=== PATIENT | male | born 1960 | race Caucasian/White ===

== ENCOUNTER 2018-01-10 20:24 | Inpatient (IN) | payer MEDICARE ==
[~2018-01-10 20:24] MED LIST: CARV12.5 PO; CLON0.2T PO; CLON1 PO; DIOV320T PO; GABA600T PO; HUMALOG SQ; HYDR-3799 PO; INSU1INJ5 SQ; ROPI1TAB72 PO; TRAM50TA PO
[2018-01-10] MEDS ORDERED: SODIUM CHLORIDE 0.9% FLUSH 10 ML FLUSH IV FLUSH PRN (21:30)
[2018-01-10] MEDS ORDERED: ACETAMINOPHEN 500 MG CPLT PO PRN (21:30)
[2018-01-10] MEDS ORDERED: FAMOTIDINE 20 MG TAB PO SCH (21:30)
[2018-01-10] MEDS ORDERED: NITROGLYCERIN 0.4 MG SL 25 TABS/BTL SL PRN (21:30)
[2018-01-10] MEDS ORDERED: hydrALAZINE HCL 20 MG/ML VIAL IV PUSH PRN (21:30)
[2018-01-10] MEDS ORDERED: GADODIAMIDE PF 287 MG/ML 5 ML VIAL (for RAD MRI) IVCONTRAST ONE (22:50)
[2018-01-10 23:00] VITALS: BP 185/115; PULSE 79; RESP 20; TEMP 98; O2SAT 98
[2018-01-10] MEDS: ENALAPRILAT 2.5 MG/2 ML VIAL IV PUSH PRN (23:20)
[2018-01-10] MEDS: HEPARIN SODIUM - SQ 10,000 UNITS/ML VIAL SQ SCH (23:21)
[2018-01-10] MEDS: FAMOTIDINE 20 MG TAB PO SCH (23:22)
--- NOTE | 2018-01-10 23:43 | HHI.HP ---
HPI Service [facility] Hospitalists Primary Care Physician Unknown Admission Diagnosis Hypertensive urgency and chest pain . Diagnoses: (1) Hypertension (2) Atypical chest pain (3) Diabetes mellitus Chief Complaint: headache with pulsation Travel History International Travel<30 Days: No Contact w/Intl Traveler <30 Da: No History of Present Illness Mr. Pleitez is a 57 y/o male patient with a history of hypertension, type II diabetes mellitus, coronary artery disease status post stent placement 15 years ago, RLS, neuropathy, and arthritis who presents to the emergency room and [place] on 01/10/2018 complaining of uncontrolled blood pressure despite taking medications. The patient reported symptoms lasting for 3 days and accompanied by chest pain, neck pain, frontal headache, and blurred vision. The patient does not follow with a city route driver. The patient was admitted to [facility] for further evaluation/management of chest pain and hypertension under the hospitalist service. The patient is seen in his hospital room. He reports that he is compliant with his medications but developed blood sugars in the 400s on Thursday (he intermittently has difficulty regulating his blood sugars and sees an board writer). Then, he had a severe frontal headache today. He said he checked his blood pressure and it was 240/136. He decided to come into the emergency room because he was feeling the way he feels when his blood pressure is completely out of control. He states he also had some chest tightness radiating to his left neck which was different than the chest pain he experienced when he had his stent placed 15 years ago. Review of Systems Except as stated in HPI: all other systems reviewed are Neg Past Family Social History Past Medical History Hypertension Diabetes mellitus Coronary artery disease status post stent placement Restless leg syndrome Neuropathy Arthritis Nerve damage right foot with mild foot drop s/p right knee surgery . Past Surgical History Cholecystectomy Bilateral knee surgeries x 8 Right shoulder surgery . Reported Medications Reported Meds & Active Scripts Active Reported Gabapentin 600 Mg Tab 600 Mg PO HS Tramadol (Tramadol HCl) 50 Mg Tab 50 Mg PO Q8H PRN Requip (Ropinirole) 1 Mg Tab 1 Mg PO HS Levemir Flextouch Pen Inj (Insulin Detemir) 300 unit/3 ML Pen 60-80 Units SQ BID Humalog Inj (Insulin Human Lispro) 1,000 Unit/10 Ml Vial 50 Units SQ BID Klonopin (Clonazepam) 1 Mg Tab 1 Mg PO BID Hydralazine HCl 25 Mg Tablet 25 Mg PO BID Coreg (Carvedilol) 12.5 Mg Tab 12.5 Mg PO BID Clonidine (Clonidine HCl) 0.2 Mg Tab 0.2 Mg PO BID Diovan (Valsartan) 320 Mg Tab 320 Mg PO DAILY . Allergies: Coded Allergies: rofecoxib (Verified Allergy, Severe, ABNORM LABS, 01/10/18) Family History Father with Alzheimer's disease Brothers with diabetes mellitus and hypertension Mother with hypertension . Social History Tobacco: Has never smoked Alcohol: Rare social alcohol use Illicit Drugs: Denies ever using illicit drugs . Physical Exam Physical Exam CONSTITUTIONAL: This is an overweight, well-developed patient, in no apparent distress. INTEGUMENTARY: No rashes, ecchymoses or lesions. Cool and dry. HEAD: Atraumatic. Normocephalic. EYES: No scleral icterus. No injection or drainage. ENT: Nose without bleeding, purulent drainage. NECK: Trachea midline. No JVD or lymphadenopathy. CARDIOVASCULAR: Regular rate and rhythm without murmurs, gallops, or rubs. RESPIRATORY: Clear to auscultation. Breath sounds equal bilaterally. No wheezes , rales, or rhonchi. GASTROINTESTINAL: Abdomen soft, non-tender, nondistended. No guarding. MUSCULOSKELETAL: Extremities without clubbing, cyanosis, or edema. No calf tenderness. NEUROLOGICAL: Awake and alert. Motor and sensory grossly within normal limits. Normal speech. PSYCHIATRIC: Appears somewhat anxious at the time of my visit . Laboratory Laboratory Tests Test 01/10/18 18:55 White Blood Count 8.2 TH/MM3 Red Blood Count 4.77 MIL/MM3 Hemoglobin 14.3 GM/DL Hematocrit 42.0 % Mean Corpuscular Volume 88.1 FL Mean Corpuscular Hemoglobin 30.0 PG Mean Corpuscular Hemoglobin Concent 34.0 % Red Cell Distribution Width 12.4 % Platelet Count 216 TH/MM3 Mean Platelet Volume 10.3 FL Immature Granulocyte % (Auto) 0.4 % Neutrophils (%) (Auto) 54.6 % Lymphocytes (%) (Auto) 34.7 % Monocytes (%) (Auto) 7.6 % Eosinophils (%) (Auto) 2.2 % Basophils (%) (Auto) 0.5 % Immature Granulocyte # (Auto) 0.0 TH/MM3 Neutrophils # (Auto) 4.5 TH/MM3 Lymphocytes # (Auto) 2.8 TH/MM3 Monocytes # (Auto) 0.6 TH/MM3 Eosinophils # (Auto) 0.2 TH/MM3 Basophils # (Auto) 0.0 TH/MM3 CBC Comment DIFF FINAL Differential Comment Prothrombin Time 9.8 SEC Prothromb Time International Ratio 0.9 RATIO Activated Partial Thromboplast Time 21.9 SEC Blood Urea Nitrogen 25 MG/DL Creatinine 1.20 MG/DL Random Glucose 185 MG/DL Calcium Level 8.4 MG/DL Magnesium Level 2.0 MG/DL Sodium Level 143 MEQ/L Potassium Level 4.2 MEQ/L Chloride Level 107 MEQ/L Carbon Dioxide Level 30.0 MEQ/L Anion Gap 6 MEQ/L Estimat Glomerular Filtration Rate 62 ML/MIN Total Creatine Kinase 284 U/L Creatine Kinase MB 4.4 NG/ML Troponin I LESS THAN 0.02 NG/ML . Imaging Last Impressions Chest X-Ray 01/10/18 1851 Signed Impressions: Service Date/Time: Wednesday, January 10, 2018 19:45 - CONCLUSION: 1. No acute cardiopulmonary disease. Ezra Reyes MD Head CT 01/10/18 0000 Signed Impressions: Service Date/Time: Wednesday, January 10, 2018 19:32 - CONCLUSION: 1. No acute intracranial abnormality. Ezra Reyes MD . Caprini VTE Risk Assessment Caprini VTE Risk Assessment: Mod/High Risk (score >= 2) Caprini Risk Assessment Model Point Value = 1 Point Value = 2 Point Value = 3 Point Value = 5 Age 41-60 Minor surgery BMI > 25 kg/m2 Swollen legs Varicose veins or History of unexplained or recurrent spontaneous Oral contraceptives or hormone replacement Sepsis (< 1 month) Serious lung disease, including pneumonia (< 1 month) Abnormal pulmonary function Acute myocardial infarction Congestive heart failure (< 1 month) History of inflammatory bowel disease Medical patient at bed rest Age 61-74 Arthroscopic surgery Major open surgery (> 45 min) Laparoscopic surgery (> 45 min) Malignancy Confined to bed (> 72 hours) Immobilizing plaster cast Central venous access Age >= 75 History of VTE Family history of VTE Factor V Leiden Prothrombin [id number] Lupus anticoagulant Anticardiolipin antibodies Elevated serum homocysteine Heparin-induced thrombocytopenia Other congenital or acquired thrombophilia Stroke (< 1 month) Elective arthroplasty Hip, pelvis, or leg fracture Acute spinal cord injury (< 1 month) Prophylaxis Regimen Total Risk Factor Score Risk Level Prophylaxis Regimen 0-1 Low Early ambulation 2 Moderate Order ONE of the following: *Sequential Compression Device (SCD) *Heparin 5000 units SQ BID 3-4 Higher Order ONE of the following medications: *Heparin 5000 units SQ TID *Enoxaparin/Lovenox 40 mg SQ daily (WT < 150 kg, CrCl > 30 mL/min) *Enoxaparin/Lovenox 30 mg SQ daily (WT < 150 kg, CrCl > 10-29 mL/min) *Enoxaparin/Lovenox 30 mg SQ BID (WT < 150 kg, CrCl > 30 mL/min) AND/OR *Sequential Compression Device (SCD) 5 or more Highest Order ONE of the following medications: *Heparin 5000 units SQ TID (Preferred with Epidurals) *Enoxaparin/Lovenox 40 mg SQ daily (WT < 150 kg, CrCl > 30 mL/min) *Enoxaparin/Lovenox 30 mg SQ daily (WT < 150 kg, CrCl > 10-29 mL/min) *Enoxaparin/Lovenox 30 mg SQ BID (WT < 150 kg, CrCl > 30 mL/min) AND *Sequential Compression Device (SCD) Assessment and Plan Problem List: (1) Hypertension ICD Code: I10 - Essential (primary) hypertension (2) Atypical chest pain ICD Code: R07.89 - Other chest pain (3) Diabetes mellitus ICD Code: E11.9 - Type 2 diabetes mellitus without complications Assessment and Plan Mr. Pleitez is a 57 y/o male patient with a history of hypertension, type II diabetes mellitus, coronary artery disease status post stent placement 15 years ago, RLS, neuropathy, and arthritis who presents to the emergency room and [place] on 01/10/2018 complaining of uncontrolled blood pressure despite taking medications. The patient reported symptoms lasting for 3 days and accompanied by chest pain, neck pain, frontal headache, and blurred vision. The patient does not follow with a city route driver. The patient was admitted to [facility] for further evaluation/management of chest pain and hypertension under the hospitalist service. Hypertensive urgency -Blood pressure was 185/115 upon arrival -Resume home antihypertensive medications -As needed enalapril 2.5 mg IV every 6 hours as needed; clonidine 0.1 mg po PRN - when HR > 60 -monitor trends in bp and adjust treatment accordingly Atypical chest pain -We will perform serial EKGs and cardiac enzymes to rule out ACS -Continuous cardiac telemetry to monitor for arrhythmias -Nitroglycerin as needed for chest pain - discussed with nurse the need to wean the NTG drip (started in [place] for BP management) -As needed morphine/[place] as needed for pain Type 2 Diabetes Mellitus -resume home Levemir (takes 40 units qhs per patient - different than what is on med req. Takes Humalog 70/30- 50 units if blood glucose > 290 at bedtime in lieu of Levemir - I have told him we will not be doing that here at the hospital ) - Accu-Cheks before meals and at bedtime with low-dose NovoLog sliding scale coverage - Hypoglycemia protocol - Monitor trends and blood glucose readings and adjust treatments as indicated DVT prophylaxis -Heparin 5000 units subcu every 8 hours . Discussed Condition With Dr. Mccarty, patient, and RN . Shoshana Griffith January 10, 2018 23:43
[2018-01-10] MEDS: MORPHINE SULFATE 4 MG/ML INJ IV PUSH PRN (23:46)
[2018-01-11] VITALS (16 sets, daily range): BP systolic 110–166; BP diastolic 8–107; PULSE 58–85; RESP 18–20; TEMP 98.1–98.8; O2SAT 97–99
[2018-01-11] MEDS: ACETAMINOPHEN/HYDROcodone 325 MG/7.5 MG TAB PO PRN ×4 (01:18→21:13)
[2018-01-11] MEDS: clonazePAM 1 MG TAB PO SCH ×3 (01:53→21:10)
[2018-01-11] MEDS: hydrALAZINE HCL 25 MG TAB PO SCH ×3 (01:53→21:11)
[2018-01-11] MEDS ORDERED: GLUCAGON 1 MG/ML VIAL OTHER PRN (02:00)
[2018-01-11] MEDS ORDERED: DEXTROSE 50% IN WATER 50 ML VIAL(D50) IV PUSH PRN (02:00)
[2018-01-11] MEDS ORDERED: cloNIDine HCL 0.1 MG TAB PO PRN (02:00)
[2018-01-11 02:11] LABS: TROPONIN I LESS THAN 0.02 NG/ML (0.02-0.05)
[2018-01-11] MEDS: MORPHINE SULFATE 4 MG/ML INJ IV PUSH PRN ×4 (02:41→21:15)
[2018-01-11] MEDS ORDERED: MORPHINE SULFATE 4 MG/ML INJ IV PUSH ONE (02:45)
[2018-01-11] MEDS: HEPARIN SODIUM - SQ 10,000 UNITS/ML VIAL SQ SCH ×3 (05:18→21:14)
[2018-01-11] MEDS: INSULIN ASPART SUPPLEMENTAL SCALE SQ SCH ×4 (08:00→22:19)
[2018-01-11] MEDS: VALSARTAN 160 MG TAB PO SCH (08:00)
[2018-01-11] MEDS: FAMOTIDINE 20 MG TAB PO SCH ×2 (08:00→21:11)
[2018-01-11] MEDS: CARVEDILOL 12.5 MG TAB PO SCH ×2 (08:00→21:10)
[2018-01-11] MEDS: SODIUM CHLORIDE 0.9% FLUSH 10 ML FLUSH IV FLUSH SCH ×2 (08:01→21:08)
--- NOTE | 2018-01-11 08:01 | EKG ---
Date Performed: 01/11/2018 Time Performed: 01:29:46 PTAGE: 57 years EKG: Sinus rhythm Normal ECG NO PREVIOUS TRACING DOCTOR: Jan Gale Interpretating Date/Time 01/11/2018 07:59:22
[2018-01-11] MEDS ORDERED: cloNIDine HCL 0.2 MG TAB PO SCH (09:00)
[2018-01-11 13:24] LABS: AUTOMATED NEUTROPHIL # 4.6 TH/MM3 (1.8-7.7); BASOPHIL % 0.2 % (0.0-2.0); EOSINOPHIL # 0.2 TH/MM3 (0-0.4); EOSINOPHIL % 2.2 % (0.0-4.0); HEMATOCRIT 46.1 % (39.0-51.0); HEMOGLOBIN 15.3 GM/DL (13.0-17.0); LYMPH % 29.8 % (9.0-44.0); LYMPHOCYTE # 2.2 TH/MM3 (1.0-4.8); MEAN CELL VOLUME 88.5 FL (80.0-100.0); MEAN CORPUSCULAR HEMOGLOBIN 29.5 PG (27.0-34.0); MEAN CORPUSCULAR HGB CONC 33.3 % (32.0-36.0); MEAN PLATELET VOLUME 8.5 FL (7.0-11.0); MONO % 6.8 % (0.0-8.0); MONOCYTE # 0.5 TH/MM3 (0-0.9); PLATELET COUNT 196 TH/MM3 (150-450); RED BLOOD COUNT 5.21 MIL/MM3 (4.50-5.90); RED CELL DISTRIBUTION WIDTH 13.5 % (11.6-17.2); WHITE BLOOD COUNT 7.5 TH/MM3 (4.0-11.0)
[2018-01-11 13:53] LABS: BICARBONATE 24.5 MEQ/L (21.0-32.0); BLOOD UREA NITROGEN 20 MG/DL (7-18); CALCIUM 8.2 MG/DL (8.5-10.1); CHLORIDE 105 MEQ/L (98-107); CREATININE 1.16 MG/DL (0.60-1.30); GLOMERULAR FILTRATION RATE 65 ML/MIN (>89); GLUCOSE,RANDOM 286 MG/DL (74-106); SODIUM (NA) 138 MEQ/L (136-145)
[2018-01-11 13:57] LABS: TROPONIN I LESS THAN 0.02 NG/ML (0.02-0.05)
--- NOTE | 2018-01-11 17:20 | HHI.PR ---
Subjective Remarks Patient seen and examined earlier today Patient was concern about having his blood pressure within the normal range, he stated this usually causing him to be dizzy and lightheaded however he is not right now no headache blood pressure was 110/69 Objective Vitals Vital Signs Date Time Temp Pulse Resp B/P (MAP) Pulse Ox O2 Delivery O2 Flow Rate FiO2 01/11/18 16:22 18 01/11/18 15:45 73 01/11/18 15:45 98.4 63 20 123/84 (97) 97 01/11/18 12:23 98.4 66 18 110/69 (83) 98 01/11/18 09:29 18 01/11/18 08:14 70 01/11/18 08:14 97 Nasal Cannula 2.00 01/11/18 08:14 98.1 64 18 166/94 (118) 97 01/11/18 06:00 69 01/11/18 05:00 73 01/11/18 04:00 98.3 70 18 126/8 (47) 98 01/11/18 04:00 Nasal Cannula 2.00 01/11/18 04:00 70 01/11/18 03:00 72 01/11/18 02:00 74 01/11/18 01:00 76 01/11/18 00:00 85 01/11/18 00:00 98.1 85 20 146/82 (103) 99 01/10/18 23:00 98.0 79 20 185/115 (138) 98 I/O 01/10/18 01/10/18 01/10/18 01/11/18 01/11/18 01/11/18 06:59 14:59 22:59 06:59 14:59 22:59 Intake Total 480 ml Output Total 700 ml Balance -220 ml Intake Oral 480 ml Output Urine Total 700 ml # Bowel Movements 0 Result Diagram: 01/11/18 1300 01/11/18 1300 Objective Remarks GENERAL: This is a well-nourished, well-developed patient, in no apparent distress. CARDIOVASCULAR: RRR, no gallops, or rubs. RESPIRATORY: Fair air entry bilaterally. No W, R, or R GASTROINTESTINAL: Abdomen soft, non-tender, nondistended. Positive bowel sounds MUSCULOSKELETAL: Extremities without clubbing, cyanosis, or edema. Pedal pulses appreciated NEUROLOGICAL: Awake and alert. Moves all extremity. Normal speech.no focal neurological deficit A/P Problem List: (1) Hypertension ICD Code: I10 - Essential (primary) hypertension (2) Atypical chest pain ICD Code: R07.89 - Other chest pain (3) Diabetes mellitus ICD Code: E11.9 - Type 2 diabetes mellitus without complications Assessment and Plan Mr. Pleitez is a 57 y/o male patient with a history of hypertension, type II diabetes mellitus, coronary artery disease status post stent placement 15 years ago, RLS, neuropathy, and arthritis who presents to the emergency room and [place] on 01/10/2018 complaining of uncontrolled blood pressure despite taking medications. The patient reported symptoms lasting for 3 days and accompanied by chest pain, neck pain, frontal headache, and blurred vision. The patient does not follow with a ruby on rails engineer. The patient was admitted to [facility], [place], operated by [facility] for further evaluation/management of chest pain and hypertension under the hospitalist service. Hypertensive urgency -Blood pressure was 185/115 upon arrival -Resume home antihypertensive medications -As needed enalapril 2.5 mg IV every 6 hours as needed; clonidine 0.1 mg po PRN - when HR > 60 -monitor trends in bp and adjust treatment accordingly 01/11: Blood pressure dropped to 110/69 I will reduce clonidine to 0.1 twice daily and make it with holding parameter for less than 130/80 Atypical chest pain>> improved mostly due to hypertensive urgency>> consider cardiology consultation -Reviewed l EKGs and cardiac enzymes to rule out ACS -Continuous cardiac telemetry to monitor for arrhythmias -Nitroglycerin as needed for chest pain - discussed with nurse the need to wean the NTG drip (started in [place] for BP management) -As needed morphine/[place] as needed for pain Type 2 Diabetes Mellitus -resume home Levemir (takes 40 units qhs per patient - different than what is on med req. Takes Humalog 70/30- 50 units if blood glucose > 290 at bedtime in lieu of Levemir - I have told him we will not be doing that here at the hospital ) - Accu-Cheks before meals and at bedtime with low-dose NovoLog sliding scale coverage - Hypoglycemia protocol - Monitor trends and blood glucose readings and adjust treatments as indicated DVT prophylaxis -Heparin 5000 units subcu every 8 hours Pirya Bullard MD January 11, 2018 17:20
[2018-01-11] MEDS: GABAPENTIN 300 MG CAP PO SCH (21:09)
[2018-01-11] MEDS: cloNIDine HCL 0.2 MG TAB PO SCH (21:12)
[2018-01-11] MEDS: INSULIN DETEMIR 100 UNITS/ML VIAL SQ SCH (22:19)
[2018-01-12] VITALS (28 sets, daily range): BP systolic 129–172; BP diastolic 73–108; PULSE 52–89; RESP 16–20; TEMP 97.9–98.9; O2SAT 96–98
[2018-01-12] MEDS: ACETAMINOPHEN/HYDROcodone 325 MG/7.5 MG TAB PO PRN ×3 (05:37→21:55)
[2018-01-12] MEDS: HEPARIN SODIUM - SQ 10,000 UNITS/ML VIAL SQ SCH ×3 (05:37→21:50)
[2018-01-12] MEDS: INSULIN ASPART SUPPLEMENTAL SCALE SQ SCH ×4 (08:00→21:48)
[2018-01-12] MEDS: FAMOTIDINE 20 MG TAB PO SCH ×2 (08:18→21:47)
[2018-01-12] MEDS: hydrALAZINE HCL 25 MG TAB PO SCH ×2 (08:18→21:46)
[2018-01-12] MEDS: cloNIDine HCL 0.2 MG TAB PO SCH ×2 (08:19→21:46)
[2018-01-12] MEDS: clonazePAM 1 MG TAB PO SCH ×2 (08:19→21:44)
[2018-01-12] MEDS: MORPHINE SULFATE 4 MG/ML INJ IV PUSH PRN ×2 (08:19→14:52)
[2018-01-12] MEDS: SODIUM CHLORIDE 0.9% FLUSH 10 ML FLUSH IV FLUSH SCH ×2 (09:00→21:51)
[2018-01-12] MEDS: CARVEDILOL 12.5 MG TAB PO SCH ×2 (09:00→21:45)
[2018-01-12] MEDS: VALSARTAN 160 MG TAB PO SCH (09:00)
--- NOTE | 2018-01-12 15:03 | HHI.PR ---
Subjective Remarks no complains of chest pain or shortness of breath telemetry- sinus- HR in the 50s complains of headahces associated with neck pain with flushing lights states good hypoglycemic awareness Objective Vitals Vital Signs Date Time Temp Pulse Resp B/P (MAP) Pulse Ox O2 Delivery O2 Flow Rate FiO2 01/12/18 13:00 72 01/12/18 12:00 58 01/12/18 11:30 98.6 63 16 144/78 (100) 98 01/12/18 11:00 56 01/12/18 10:00 66 01/12/18 09:00 74 01/12/18 08:00 52 01/12/18 07:50 98.7 56 18 172/108 (129) 98 01/12/18 07:36 98 01/12/18 07:00 63 01/12/18 06:10 64 01/12/18 05:00 58 01/12/18 04:00 66 01/12/18 03:57 97.9 64 18 133/85 (101) 96 01/12/18 03:00 63 01/12/18 02:00 62 01/12/18 01:00 58 01/12/18 00:14 98.7 66 16 129/73 (91) 98 01/12/18 00:00 62 01/11/18 23:00 76 01/11/18 22:21 18 01/11/18 22:00 60 01/11/18 21:30 20 01/11/18 21:00 62 01/11/18 20:53 98.8 62 18 149/107 (121) 98 01/11/18 20:53 97 Room Air 01/11/18 20:00 58 01/11/18 19:00 70 01/11/18 15:45 73 01/11/18 15:45 98.4 63 20 123/84 (97) 97 I/O 01/11/18 01/11/18 01/11/18 01/12/18 01/12/18 01/12/18 07:00 15:00 23:00 07:00 15:00 23:00 Intake Total 480 ml 960 ml 480 ml Output Total 700 ml 1400 ml 925 ml Balance -220 ml -440 ml -445 ml Intake Oral 480 ml 960 ml 480 ml Output Urine Total 700 ml 1400 ml 925 ml # Bowel Movements 0 1 1 Result Diagram: 01/11/18 1300 01/11/18 1300 Objective Remarks awake and alert, no acute distress, good EOM full range of motion CN intact anicteric neck supple lungs- clear regular rhythm abdomen soft, nontender motor 5/5 gait up and ambulating- stady. grossly no sensory deficits A/P Problem List: (1) Hypertension ICD Code: I10 - Essential (primary) hypertension (2) Atypical chest pain ICD Code: R07.89 - Other chest pain (3) Diabetes mellitus ICD Code: E11.9 - Type 2 diabetes mellitus without complications Assessment and Plan Mr. Pleitez is a 57 y/o male patient with a history of hypertension, type II diabetes mellitus, coronary artery disease status post stent placement 15 years ago, RLS, neuropathy, and arthritis who presents to the emergency room and [place] on 01/10/2018 complaining of uncontrolled blood pressure despite taking medications. The patient reported symptoms lasting for 3 days and accompanied by chest pain, neck pain, frontal headache, and blurred vision. The patient does not follow with a hip hop dancer. The patient was admitted to [facility] for further evaluation/management of chest pain and hypertension under the hospitalist service. Hypertensive urgency- contiue meds and adjust -Blood pressure was 185/115 upon arrival -Resume home antihypertensive medications -As needed enalapril 2.5 mg IV every 6 hours as needed; -monitor trends in bp and adjust treatment accordingly on coreg 12.5 mg po bid - on clonidine 0.1 mg po bid continue on ARB Atypical chest pain>> improved mostly due to hypertensive urgency>>troponins negative,. no chest pain History of CAD -Reviewed l EKGs and cardiac enzymes to rule out ACS -Continuous cardiac telemetry to monitor for arrhythmias - request for myocardial perfusion study Type 2 Diabetes Mellitus -resume home Levemir (takes 40 units qhs per patient - different than what is on med req. - Takes Humalog 70/30- 50 units if blood glucose > 290 at bedtime in lieu of Levemir - I have told him we will not be doing that here at the hospital) - Accu-Cheks before meals and at bedtime with low-dose NovoLog sliding scale coverage - Hypoglycemia protocol - Monitor trends and blood glucose readings and adjust treatments as indicated - OP ff up with PCP - Dr. Singleton DVT prophylaxis -Heparin 5000 units subcu every 8 hours Headaches - neuro exam- negative - Margie prn Increase activity PT consult- right foot drop - chronic- cane or walker Denisse Parada MD January 12, 2018 15:03
--- NOTE | 2018-01-12 15:15 | HHI.FF ---
Face to Face Verification Diagnosis: (1) Diabetes mellitus (2) Hypertension Home Health Nursing Order: Nursing assessment with vital signs I have seen patient José Miguel Pleitez on 01/12/18. My clinical findings support the need for the requested home health care services because: Ltd mobility - disease progression Need for psychosocial assistance I certify that my clinical findings support that this patient is homebound because: Need for psychosocial assistance Denisse Parada MD January 12, 2018 15:15
[2018-01-12] MEDS: SODIUM CHLOR 0.9% 1000 ML INJ 1,000 ML IV SCH ×2 (15:45→16:45)
[2018-01-12] MEDS ORDERED: MORPHINE SULFATE 4 MG/ML INJ IV PUSH PRN (15:45)
--- NOTE | 2018-01-12 21:09 | RADRPT ---
EXAM DATE: 01/12/2018 8:54 PM EDT AGE/SEX: 57 years / Male INDICATIONS: Cephalgia. CLINICAL DATA: This is the patient's initial encounter. Patient reports that signs and symptoms have been present for 1 day and indicates a pain score of 6/10. MEDICAL/SURGICAL HISTORY: Hypertension. Diabetes mellitus type II. Total knee replacement, lef t. Total knee replacement, right. Cholecystectomy. Right shoulder replacement. COMPARISON: [facility], CT BRAIN W/O CONTRAST, 01/10/2018. . TECHNIQUE: Multiplanar, multisequence examination of the brain was performed without and with 17 ml O mniscan (gadodiamide) contrast as a single exam dose. FINDINGS: Cerebrum: The ventricles are normal for age. No evidence of midline shift, mass lesion, hemorrhage or acute infarction. No extraaxial fluid collections are seen. The pituitary gland and suprasellar cistern are normal in configuration. White Matter: No significant signal abnormalities are seen in the white matter. Posterior Fossa: The cerebellum and brainstem are intact. The 4th ventricle is midline. The cerebel lopontine angle is unremarkable. The cerebellar tonsils are normal in position. There are prominent degenerative changes in the atlantoaxial articulation and there is synovial thickening posterior to t he dens which does cause a curvature of the junction of the cervical cord and brainstem. There is CSF seen ventral to the cervical cord. No evidence of syrinx. Diffusion Imaging: No focal areas of restricted diffusion are seen. No evidence of acute infarction . Extracranial: The visualized portions of the orbits and paranasal sinuses are unremarkable. Post Contrast: No abnormal areas of parenchymal or dural enhancement. No evidence of blood-brain ba rrier breakdown. CONCLUSION: 1. Degenerative changes of the atlantoaxial articulation with associated synovial thickening which d oes cause some deviation of the junction of the medulla and cervical cord, but no evidence of cord co mpression. 2. No acute findings in the supra or infratentorial brain. Electronically signed by: Zach Monroe MD 01/12/2018 9:08 PM EDT
[2018-01-12] MEDS: GABAPENTIN 300 MG CAP PO SCH (21:45)
[2018-01-12] MEDS: INSULIN DETEMIR 100 UNITS/ML VIAL SQ SCH (21:48)
[2018-01-13] VITALS (28 sets, daily range): BP systolic 114–208; BP diastolic 71–111; PULSE 50–70; RESP 12–18; TEMP 97.8–98.4; O2SAT 94–97
[2018-01-13 03:28] LABS: ALBUMIN 3.5 GM/DL (3.4-5.0); ALKALINE PHOSPHATASE 74 U/L (45-117); ALT (GPT) 30 U/L (12-78); AST (GOT) 18 U/L (15-37); BICARBONATE 27.3 MEQ/L (21.0-32.0); BLOOD UREA NITROGEN 18 MG/DL (7-18); CALCIUM 8.1 MG/DL (8.5-10.1); CHLORIDE 105 MEQ/L (98-107); CHOLESTEROL 177 MG/DL (120-200); CHOLESTEROL/ HDL RATIO 6.02 RATIO; CREATININE 0.85 MG/DL (0.60-1.30); DIRECT BILIRUBIN ADULT LESS THAN 0.1 MG/DL (0.0-0.2); GLOMERULAR FILTRATION RATE 93 ML/MIN (>89); GLUCOSE,RANDOM 149 MG/DL (74-106); HDL CHOLESTEROL 29.4 MG/DL (40.0-60.0); LDL CHOLESTEROL 78 MG/DL (0-99); SODIUM (NA) 140 MEQ/L (136-145); TOTAL BILIRUBIN ADULT 0.1 MG/DL (0.2-1.0); TOTAL PROTEIN 7.5 GM/DL (6.4-8.2); TRIGLYCERIDES 350 MG/DL (42-150)
[2018-01-13] MEDS: HEPARIN SODIUM - SQ 10,000 UNITS/ML VIAL SQ SCH ×3 (05:08→20:58)
[2018-01-13] MEDS: INSULIN ASPART SUPPLEMENTAL SCALE SQ SCH ×4 (08:00→21:00)
[2018-01-13] MEDS: clonazePAM 1 MG TAB PO SCH ×2 (08:48→20:57)
[2018-01-13] MEDS: cloNIDine HCL 0.2 MG TAB PO SCH ×2 (08:49→20:56)
[2018-01-13] MEDS: CARVEDILOL 12.5 MG TAB PO SCH ×2 (08:49→20:57)
[2018-01-13] MEDS: hydrALAZINE HCL 25 MG TAB PO SCH ×2 (08:49→17:17)
[2018-01-13] MEDS: FAMOTIDINE 20 MG TAB PO SCH ×2 (08:49→20:57)
[2018-01-13] MEDS: SODIUM CHLORIDE 0.9% FLUSH 10 ML FLUSH IV FLUSH SCH ×2 (09:00→20:58)
[2018-01-13] MEDS: VALSARTAN 160 MG TAB PO SCH (09:00)
[2018-01-13] MEDS: ACETAMINOPHEN/HYDROcodone 325 MG/7.5 MG TAB PO PRN ×2 (10:06→18:41)
--- NOTE | 2018-01-13 11:08 | HHI.PR ---
Subjective Remarks headache- relieves with Lortab- no nausea or vomitng, no neck pain no complains of chest pain or shortness ofb reath Objective Vitals Vital Signs Date Time Temp Pulse Resp B/P (MAP) Pulse Ox O2 Delivery O2 Flow Rate FiO2 01/13/18 07:17 98.0 55 12 155/103 (120) 96 01/13/18 06:00 50 01/13/18 05:00 54 01/13/18 04:03 97.8 57 18 114/73 (87) 96 01/13/18 04:00 60 01/13/18 03:00 56 01/13/18 02:00 62 01/13/18 01:00 58 01/13/18 00:00 98.1 62 18 124/71 (88) 96 01/13/18 00:00 70 01/12/18 23:00 70 01/12/18 22:55 18 01/12/18 22:00 70 01/12/18 22:00 66 01/12/18 21:00 64 01/12/18 20:00 98.3 62 20 157/90 (112) 97 01/12/18 20:00 97 Room Air 01/12/18 20:00 62 01/12/18 19:00 70 01/12/18 18:00 72 01/12/18 17:00 66 01/12/18 16:00 58 01/12/18 15:00 64 01/12/18 15:00 98.9 73 18 144/96 (112) 98 01/12/18 14:00 66 01/12/18 13:00 72 01/12/18 12:00 58 01/12/18 11:30 98.6 63 16 144/78 (100) 98 I/O 01/12/18 01/12/18 01/12/18 01/13/18 01/13/18 01/13/18 07:00 15:00 23:00 07:00 15:00 23:00 Intake Total 480 ml 1000 ml 480 ml Output Total 925 ml 1700 ml 350 ml Balance -445 ml -700 ml 130 ml Intake Oral 480 ml 1000 ml 480 ml Output Urine Total 925 ml 1700 ml 350 ml # Bowel Movements 1 Result Diagram: 01/11/18 1300 01/13/18 0205 Imaging Last Impressions Brain MRI 01/12/18 0000 Signed Impressions: CONCLUSION: Objective Remarks awake and alert, no acute distress, good EOM full range of motion CN intact anicteric neck supple lungs- clear regular rhythm abdomen soft, nontender motor 5/5 gait up and ambulating- setady. grossly no sensory deficits A/P Problem List: (1) Hypertension ICD Code: I10 - Essential (primary) hypertension (2) Atypical chest pain ICD Code: R07.89 - Other chest pain (3) Diabetes mellitus ICD Code: E11.9 - Type 2 diabetes mellitus without complications Assessment and Plan Mr. Pleitez is a 57 y/o male patient with a history of hypertension, type II diabetes mellitus, coronary artery disease status post stent placement 15 years ago, RLS, neuropathy, and arthritis who presents to the emergency room and [place] on 01/10/2018 complaining of uncontrolled blood pressure despite taking medications. The patient reported symptoms lasting for 3 days and accompanied by chest pain, neck pain, frontal headache, and blurred vision. 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 The patient was admitted to [facility] for further evaluation/management of chest pain and hypertension under the hospitalist service. Hypertensive urgency- -Blood pressure was 185/115 upon arrival -Resume home antihypertensive medications -monitor trends in bp and adjust treatment accordingly on coreg 12.5 mg po bid - on clonidine 0.1 mg po bid (at home was on 0.2 mg po bid) increase Hydralazaine to 25 mg po tid - continue on ARB - consider adding CCB- Amlodipine Atypical chest pain>> improved mostly due to hypertensive urgency>>troponins negative,. no chest pain History of CAD -Reviewed l EKGs and cardiac enzymes to rule out ACS -Continuous cardiac telemetry to monitor for arrhythmias - request for myocardial perfusion study Type 2 Diabetes Mellitus -resume home Levemir (takes 40 units qhs per patient - different than what is on med req. - Takes Humalog 70/30- 50 units if blood glucose > 290 at bedtime in lieu of Levemir - I have told him we will not be doing that here at the hospital) - Accu-Cheks before meals and at bedtime with low-dose NovoLog sliding scale coverage - Hypoglycemia protocol - Monitor trends and blood glucose readings and adjust treatments as indicated - OP ff up with PCP - Dr. O- [place] DVT prophylaxis -Heparin 5000 units subcu every 8 hours Headaches - neuro exam- negative - [place] prn Increase activity PT consult- right foot drop - chronic- cane or walker Denisse Parada MD January 13, 2018 11:08
[2018-01-13] MEDS ORDERED: REGADENOSON INJ 0.4 MG/5 ML SYR ONE (14:29)
--- NOTE | 2018-01-13 16:19 | RADRPT ---
EXAM DATE: 01/13/2018 4:09 PM EDT AGE/SEX: 57 years / Male INDICATIONS:Coronary artery disease. . Chest pain, neck pain, frontal headache, and blurred vision. CLINICAL DATA: This is the patient's initial encounter. Patient reports that signs and symptoms have been present for 1 day and indicates a pain score of 4/10. MEDICAL/SURGICAL HISTORY: Diabetes mellitus type II. Hypertension. Coronary artery stent. Cho lecystectomy. COMPARISON: No prior [facility] exams available for comparison. DOSE: 26.1 mCi Tc 99m Myoview at stress 8.5 mCi [id number] at rest 0.4 mg Lexiscan STRESS SYMPTOMS: Chest pressure. EJECTION FRACTION: 66 % TECHNIQUE: The patient underwent pharmacologic stress with infusion of prescribed dose. Continuous ECG tracing was monitored during stress. Gated SPECT imaging was performed after stress and conventi onal SPECT imaging was performed at rest. The examination was performed on a SPECT/CT scanner, both attenuation and non-corrected datasets were reviewed. FINDINGS: Distribution: The maximum perfused segment at stress is in the lateral wall. Perfusion Study: The pattern of perfusion at stress is within normal limits. Gated Study: There are intact wall motion and wall thickening without hypokinetic or dyskinetic segm ents. The ejection fraction is calculated at 66%. RISK CATEGORY: Low (<1% Annual Motality Rate) CONCLUSION: 1. Unremarkable myocardial perfusion exam. Electronically signed by: Austin Aparicio MD 01/13/2018 4:18 PM EDT
[2018-01-13 16:55] LABS: HEMOGLOBIN A1C 8.2 % (4.3-6.0)
[2018-01-13] MEDS ORDERED: HYDR-3799 PO (17:47)
[2018-01-13] MEDS: ENALAPRILAT 2.5 MG/2 ML VIAL IV PUSH PRN (19:18)
[2018-01-13] MEDS: GABAPENTIN 300 MG CAP PO SCH (20:57)
[2018-01-13] MEDS: INSULIN DETEMIR 100 UNITS/ML VIAL SQ SCH (21:00)
[2018-01-13] MEDS ORDERED: LORazepam 1 MG TAB PO ONE (22:45)
[2018-01-14] VITALS (14 sets, daily range): BP systolic 100–171; BP diastolic 56–103; PULSE 51–94; RESP 16; TEMP 97.5–97.7; O2SAT 95–99
[2018-01-14] MEDS: ACETAMINOPHEN/HYDROcodone 325 MG/7.5 MG TAB PO PRN (01:40)
[2018-01-14] MEDS ORDERED: LORA-474 PO (01:47)
[2018-01-14] MEDS: HEPARIN SODIUM - SQ 10,000 UNITS/ML VIAL SQ SCH (05:20)
[2018-01-14] MEDS: INSULIN ASPART SUPPLEMENTAL SCALE SQ SCH ×2 (08:00→12:00)
[2018-01-14] MEDS: VALSARTAN 160 MG TAB PO SCH (08:25)
[2018-01-14] MEDS: cloNIDine HCL 0.2 MG TAB PO SCH (08:26)
[2018-01-14] MEDS: clonazePAM 1 MG TAB PO SCH (08:26)
[2018-01-14] MEDS: hydrALAZINE HCL 25 MG TAB PO SCH ×2 (08:26→12:30)
[2018-01-14] MEDS: FAMOTIDINE 20 MG TAB PO SCH (08:26)
[2018-01-14] MEDS: SODIUM CHLORIDE 0.9% FLUSH 10 ML FLUSH IV FLUSH SCH (08:27)
--- NOTE | 2018-01-14 08:36 | HHI.PR ---
Subjective Remarks telemetry- sinus HR 58 feeling better no headaches, nausea or vomiting Objective Vitals Vital Signs Date Time Temp Pulse Resp B/P (MAP) Pulse Ox O2 Delivery O2 Flow Rate FiO2 01/14/18 07:15 97.7 57 16 171/103 (125) 99 01/14/18 07:15 99 Room Air 01/14/18 07:00 51 01/14/18 05:58 54 01/14/18 05:00 56 01/14/18 04:04 53 01/14/18 03:48 97.5 94 16 120/85 (97) 95 01/14/18 02:00 51 01/14/18 01:48 60 139/85 (103) 96 01/14/18 01:00 61 01/13/18 23:45 Room Air 01/13/18 23:08 98.4 56 16 150/95 (113) 94 01/13/18 22:55 60 01/13/18 22:00 58 01/13/18 22:00 173/101 (125) 01/13/18 21:00 62 01/13/18 20:20 98.2 62 18 208/111 (143) 94 01/13/18 20:00 Room Air 01/13/18 19:16 58 01/13/18 18:36 178/110 (132) 01/13/18 18:00 58 01/13/18 17:20 98.0 55 16 96 01/13/18 17:00 60 01/13/18 16:00 58 01/13/18 15:00 54 01/13/18 12:00 54 01/13/18 11:21 55 14 138/90 (106) 97 01/13/18 11:00 54 01/13/18 10:00 62 01/13/18 09:00 60 I/O 01/13/18 01/13/18 01/13/18 01/14/18 01/14/18 01/14/18 07:00 15:00 23:00 07:00 15:00 23:00 Intake Total 480 ml 440 ml 720 ml Output Total 350 ml 500 ml Balance 130 ml -60 ml 720 ml Intake Oral 480 ml 440 ml 720 ml Output Urine Total 350 ml 500 ml # Voids 2 # Bowel Movements 1 Result Diagram: 01/11/18 1300 01/13/18 0205 Imaging Last Impressions Myocardial Perfusion Scan Nuc Med 01/13/18 0000 Signed Impressions: CONCLUSION: 1. Unremarkable myocardial perfusion exam. Brain MRI 01/12/18 0000 Signed Impressions: CONCLUSION: 1. Degenerative changes of the atlantoaxial articulation with associated synov ial thickening which does cause some deviation of the junction of the medulla a nd cervical cord, but no evidence of cord compression. 2. No acute findings in the supra or infratentorial brain. Objective Remarks awake and alert, no acute distress, good EOM full range of motion anicteric neck supple lungs- clear regular rhythm abdomen soft, nontender motor 5/5 gait up and ambulating- steady. grossly no sensory deficits A/P Problem List: (1) Hypertension ICD Code: I10 - Essential (primary) hypertension (2) Atypical chest pain ICD Code: R07.89 - Other chest pain (3) Diabetes mellitus ICD Code: E11.9 - Type 2 diabetes mellitus without complications Assessment and Plan Mr. Pleitez is a 57 y/o male patient with a history of hypertension, type II diabetes mellitus, coronary artery disease status post stent placement 15 years ago, RLS, neuropathy, and arthritis who presents to the emergency room and [place] on 01/10/2018 complaining of uncontrolled blood pressure despite taking medications. The patient reported symptoms lasting for 3 days and accompanied by chest pain, neck pain, frontal headache, and blurred vision. The patient does not follow with a warper fixer. The patient was admitted to [facility] for further evaluation/management of chest pain and hypertension under the hospitalist service. Hypertensive urgency- -Blood pressure was 185/115 upon arrival -Resume home antihypertensive medications -monitor trends in bp and adjust treatment accordingly - decrease to 6.25 mg po bid- with occasional HR in the low 50s - Add amlodipine 5 mg po daily - on clonidine 0.1 mg po bid (at home was on 0.2 mg po bid) increase Hydralazaine to 25 mg po tid - continue on ARB - Atypical chest pain>> improved mostly due to hypertensive urgency>>troponins negative,. no chest pain History of CAD -Reviewed l EKGs and cardiac enzymes to rule out ACS -Continuous cardiac telemetry to monitor for arrhythmias - normal myocardial perfusion study Type 2 Diabetes Mellitus -resume home Levemir (takes 40 units qhs per patient - different than what is on med req. - Takes Humalog 70/30- 50 units if blood glucose > 290 at bedtime in lieu of Levemir - I have told him we will not be doing that here at the hospital) - Accu-Cheks before meals and at bedtime with low-dose NovoLog sliding scale coverage - Hypoglycemia protocol - Monitor trends and blood glucose readings and adjust treatments as indicated - OP ff up with PCP - Dr. Eliel Price DVT prophylaxis -Heparin 5000 units subcu every 8 hours Headaches- likely related to Hypetension - neuro exam- negative - [place] prn - MRI neative Increase activity PT consult- right foot drop - chronic- cane or walker DC today OP ff up with PCP Denisse Parada MD January 14, 2018 08:36
[2018-01-14] MEDS ORDERED: CLON.2 PO (08:52)
[2018-01-14] MEDS ORDERED: CARV12.5 PO (08:52)
[2018-01-14] MEDS ORDERED: AMLO5 PO ×2 (08:52→10:31)
--- NOTE | 2018-01-14 08:57 | HHI.DS ---
Discharge Summary Admission Date January 10, 2018 at 23:00 Discharge Date: January 14, 2018 Admitting Diagnosis Hypertensive urgency and chest pain . (1) Hypertension ICD Code: I10 - Essential (primary) hypertension Diagnosis: Principal (2) Atypical chest pain ICD Code: R07.89 - Other chest pain Diagnosis: Principal (3) Diabetes mellitus ICD Code: E11.9 - Type 2 diabetes mellitus without complications Diagnosis: Secondary Procedures none Brief History - From Admission Mr. Pleitez is a 57 y/o male patient with a history of hypertension, type II diabetes mellitus, coronary artery disease status post stent placement 15 years ago, RLS, neuropathy, and arthritis who presents to the emergency room and [place] on 01/10/2018 complaining of uncontrolled blood pressure despite taking medications. The patient reported symptoms lasting for 3 days and accompanied by chest pain, neck pain, frontal headache, and blurred vision. The patient does not follow with a scientific associate. The patient was admitted to [facility] for further evaluation/management of chest pain and hypertension under the hospitalist service. The patient is seen in his hospital room. He reports that he is compliant with his medications but developed blood sugars in the 400s on Thursday (he intermittently has difficulty regulating his blood sugars and sees an finish painter). Then, he had a severe frontal headache today. He said he checked his blood pressure and it was 240/136. He decided to come into the emergency room because he was feeling the way he feels when his blood pressure is completely out of control. He states he also had some chest tightness radiating to his left neck which was different than the chest pain he experienced when he had his stent placed 15 years ago. CBC/BMP: 01/11/18 1300 01/13/18 0205 Significant Findings Laboratory Tests Test 01/11/18 13:00 01/13/18 02:05 Blood Urea Nitrogen 20 MG/DL (7-18) Random Glucose 286 MG/DL (74-106) 149 MG/DL (74-106) Calcium Level 8.2 MG/DL (8.5-10.1) 8.1 MG/DL (8.5-10.1) Estimat Glomerular Filtration Rate 65 ML/MIN (>89) Troponin I LESS THAN 0.02 NG/ML Total Bilirubin 0.1 MG/DL (0.2-1.0) Hemoglobin A1c 8.2 % (4.3-6.0) Triglycerides Level 350 MG/DL (42-150) HDL Cholesterol 29.4 MG/DL (40.0-60.0) PE at Discharge awake and alert, no acute distress, good EOM full range of motion anicteric neck supple lungs- clear regular rhythm abdomen soft, nontender motor 5/5 gait up and ambulating- steady. grossly no sensory deficits Pt update on day of discharge alert and interactive, happy regular rhtyhm no headaches Hospital Course Mr. Pleitez is a 57 y/o male patient with a history of hypertension, type II diabetes mellitus, coronary artery disease status post stent placement 15 years ago, RLS, neuropathy, and arthritis who presents to the emergency room and [place] on 01/10/2018 complaining of uncontrolled blood pressure despite taking medications. The patient reported symptoms lasting for 3 days and accompanied by chest pain, neck pain, frontal headache, and blurred vision. The patient does not follow with a scientific associate. The patient was admitted to [facility] [place] for further evaluation/management of chest pain and hypertension under the hospitalist service. Hypertensive urgency- -Blood pressure was 185/115 upon arrival -Resume home antihypertensive medications -monitor trends in bp and adjust treatment accordingly - decrease to 6.25 mg po bid- with occasional HR in the low 50s - Add amlodipine 5 mg po daily - on clonidine 0.1 mg po bid (at home was on 0.2 mg po bid) increase Hydralazaine to 25 mg po tid - continue on ARB - Atypical chest pain>> improved mostly due to hypertensive urgency>>troponins negative,. no chest pain History of CAD -Reviewed l EKGs and cardiac enzymes to rule out ACS -Continuous cardiac telemetry to monitor for arrhythmias - normal myocardial perfusion study Type 2 Diabetes Mellitus -resume home Levemir (takes 40 units qhs per patient - different than what is on med req. - Takes Humalog 70/30- 50 units if blood glucose > 290 at bedtime in lieu of Levemir - I have told him we will not be doing that here at the hospital) - Accu-Cheks before meals and at bedtime with low-dose NovoLog sliding scale coverage - Hypoglycemia protocol - Monitor trends and blood glucose readings and adjust treatments as indicated - OP ff up with PCP - Dr. Eliel Price DVT prophylaxis -Heparin 5000 units subcu every 8 hours Headaches- likely related to Hypetension - neuro exam- negative - [place] prn - MRI neative Increase activity PT consult- right foot drop - chronic-appreciated - prescription given for right foot/ankle orthosis - DC today OP ff up with PCP Pt Condition on Discharge: Good Discharge Disposition: Discharge Home Discharge Time: <= 30 minutes Discharge Instructions DIET: Follow Instructions for: Heart Healthy Diet, Diabetic Diet Activities you can perform: Weight Bearing as [place] Follow up Referrals: PCP Follow-up - 3-[address] Mani Red Medications: Amlodipine (Norvasc) 5 Mg Tab 2.5 MG PO DAILY for HTN for 30 Days, #15 TAB Carvedilol (Coreg) 12.5 Mg Tab 6.25 MG PO BID for HTN for 30 Days, #30 TAB Clonidine (Catapres) 0.2 Mg Tab 0.1 MG PO BID for HTN for 30 Days, #30 TAB Hydralazine HCl (Hydralazine HCl) 25 Mg Tablet 25 MG PO TID for HTN for 30 Days, TAB Continued Medications: Clonazepam (Klonopin) 1 Mg Tab 1 MG PO BID, #60 TAB 0 Refills Gabapentin (Gabapentin) 600 Mg Tab 600 MG PO HS, #30 TAB 0 Refills Insulin Detemir Inj (Levemir Flextouch Pen Inj) 300 unit/3 ML Pen 60-80 UNITS SQ BID for Blood Sugar Management, PEN 0 Refills Insulin Lispro (Human) Inj (Humalog Inj) 1,000 Unit/10 Ml Vial 50 UNITS SQ BID for Blood Sugar Management, #1 VIAL 0 Refills Ropinirole (Requip) 1 Mg Tab 1 MG PO HS, #30 TAB 0 Refills Tramadol (Tramadol) 50 Mg Tab 50 MG PO Q8H PRN for PAIN, TAB 0 Refills Valsartan (Diovan) 320 Mg Tab 320 MG PO DAILY, #30 TAB 0 Refills Discontinued Medications: Carvedilol (Coreg) 12.5 Mg Tab 12.5 MG PO BID, #60 TAB 0 Refills Clonidine (Clonidine) 0.2 Mg Tab 0.2 MG PO BID for Blood Pressure Management, #60 TAB 0 Refills Hydralazine HCl (Hydralazine HCl) 25 Mg Tablet 25 MG PO BID for Blood Pressure Management, #60 TAB 0 Refills Denisse Parada MD January 14, 2018 08:57
[2018-01-14] MEDS ORDERED: CARVEDILOL 6.25 MG TAB PO SCH (09:00)
[2018-01-14] MEDS ORDERED: amLODIPine BESYLATE 5 MG TAB PO SCH (09:00)
[2018-01-14] MEDS ORDERED: PILL SPLITTER OTHER PRN (10:45)
[2018-01-14] MEDS ORDERED: NORC5TAB PO (11:04)
[2018-01-15] MEDS ORDERED: amLODIPine BESYLATE 5 MG TAB PO SCH (09:00)
== END 2018-01-14 13:10 | disposition home or self-care (01) | DRG 305 ==
LOC: NEDDLT 22:39 → HCIS 22:49 → OBSVTOIN 23:00
PROVIDERS: ADMIT Internal Medicine; ATTEND Internal Medicine
DX: I16.0 Hypertensive urgency (principal); E11.40 Type 2 diabetes mellitus with diabetic neuropathy, unspecified; E11.649 Type 2 diabetes mellitus with hypoglycemia without coma; I10 Essential (primary) hypertension; M54.2 Cervicalgia; R07.89 Other chest pain; G25.81 Restless legs syndrome; I25.10 Atherosclerotic heart disease of native coronary artery without angina pectoris; M21.371 Foot drop, right foot; E66.3 Overweight; M19.90 Unspecified osteoarthritis, unspecified site; Z79.899 Other long term (current) drug therapy; Z95.5 Presence of coronary angioplasty implant and graft; Z79.4 Long term (current) use of insulin; Z83.3 Family history of diabetes mellitus; Z82.49 Family history of ischemic heart disease and other diseases of the circulatory system
CPT/HCPCS: 70450; 70553; 71046; 78452; 80048; 80061; 80076; 82550; 82552; 82948; 83036; 83735; 84443; 84484; 85025; 85610; 85730; 93005; 93017; 96365; A9502; A9579; J1644; J1815; J2270; J2785; J7030